=== PATIENT | female | born 1945 | race Caucasian/White ===

== ENCOUNTER → 2017-03-04 | Outpatient (CLI) | payer MEDICARE, OTHER ==
--- NOTE | 2017-03-09 09:30 | RADIOLOGY IMAGING REPORT ---
FACILITY: [facility] PATIENT NAME: CHRISTO STACK : [id number] MR: [id number] V: [id number] EXAM DATE: [id number] ORDERING PHYSICIAN: GAUDENCIO TORRES TECHNOLOGIST: Nahomy Canseco PROCEDURE:BILATERAL DIGITAL SCREENING MAMMOGRAM WITH CAD AND 3D BREAST TOMOSYNTHESIS. COMPARISON:02/04/16 and priors back to 11/09/2011. INDICATIONS:SCREENING FINDINGS: Grouped calcifications in the posterior left breast best seen in the MLO view are unchanged back to 2014. There is no mass or architectural distortion on either side. Asymmetry in the medial left breast in the CC projection is unchanged back to 2011. DIAGNOSTIC CATEGORY 2--BENIGN FINDING. RECOMMENDATIONS: ROUTINE MAMMOGRAM AND CLINICAL EVALUATION. IMPRESSION: Bi-RADS 2: Benign finding. RECOMMENDATION: Followup screening mammogram in one year. Dictated by: Leander Gan on 03/07/2017 at 9:10 Transcribed by: QUE on 03/07/2017 at 22:09 Approved by: Madiha Aguirre M.D. on 03/09/2017 at 8:49 [facility]
== END ==
LOC: MAMO 04:22
PROVIDERS: ATTEND Obstetrics & Gynecology
DX: Z12.31 Encounter for screening mammogram for malignant neoplasm of breast (principal)
CPT/HCPCS: 77063; 77067

== ENCOUNTER → 2018-03-06 | Outpatient (CLI) | payer MEDICARE, OTHER ==
--- NOTE | 2018-03-07 09:01 | RADIOLOGY IMAGING REPORT ---
FACILITY: [facility] [place] PATIENT NAME: CHRISTO STACK : [id number] MR: [id number] V: [id number] EXAM DATE: ORDERING PHYSICIAN: [id number] KU TECHNOLOGIST: Melissa Johnson PROCEDURE:BILATERAL DIGITAL SCREENING MAMMOGRAM WITH CAD ASSISTED INTERPRETATION & 3D TOMOSYNTHESIS COMPARISON:Prior mammograms 03/04/17, 02/04/16, 01/23/15, 01/22/14, 02/07/14, 12/22/12. INDICATIONS:SCREENING FINDINGS: The breasts are heterogeneously dense which can obscure small masses. The parenchymal pattern has remained stable allowing for difference in mammographic technique & patient positioning. DIAGNOSTIC CATEGORY 1--NEGATIVE. RECOMMENDATIONS: ROUTINE MAMMOGRAM AND CLINICAL EVALUATION. IMPRESSION: BIRADS 1: Negative. No significant abnormality is seen. Dictated by: Madiha Aguirre M.D. on 03/06/2018 at 18:10 Transcribed by: LUIS on 03/07/2018 at 7:57 Approved by: Madiha Aguirre M.D. on 03/07/2018 at 9:00 [facility]
== END ==
LOC: MAMO 03:21
PROVIDERS: ATTEND Nurse Practitioner Family
DX: Z12.31 Encounter for screening mammogram for malignant neoplasm of breast (principal)
CPT/HCPCS: 77063; 77067